=== PATIENT | female | born 1950 | race American Indian/Alaskan Native ===

== ENCOUNTER 2017-10-24 07:08 | Emergency (ER) | payer MEDICARE ==
[2017-10-24 07:35] VITALS: BP 112/76
[2017-10-24] MEDS ORDERED: MOTRIN PO ONE (07:46)
[2017-10-24] MEDS ORDERED: XOPENEX IH ONE (07:46)
[2017-10-24] MEDS ORDERED: ATROVENT IH ONE (07:46)
--- NOTE | 2017-10-24 07:48 | Emergency Department Report ---
HPI - General Chief Complaint: Upper Respiratory Infection Time Seen by Provider: 10/24/17 07:43 - HPI HPI: Patient here reports that she has flulike symptoms to include headache, cough and body aches. She said her is currently at the [facility] in ICU with similar symptoms. She reports having fever and chills. She is been taking [id number] medication without any success. She denies any shortness of breath or chest pain. Patient has history of hypertension which is controlled. Denies any nausea or vomiting. Body aches at 3/10 and achy. Nothing makes it better and nothing makes it worse. ED Past Medical Hx - Past Medical History Previous Medical History?: Yes Hx Hypertension: Yes - Surgical History Past Surgical History?: No - Family History Family history: hypertension - Social History Smoking Status: Former Smoker Substance Use Type: Alcohol - Medications Home Medications: Home Medications Medication Instructions Recorded Confirmed Last Taken Type ALBUTEROL Inhaler [ProAir HFA 2 puff IH Q4-6H PRN 30 Days #1 10/24/17 Unknown Rx Inhaler] inhalation Amoxicillin/K Clav Tab [Augmentin 1 tab PO Q12HR 10 Days #20 tab 10/24/17 Unknown Rx 875 mg] Cetirizine HCl [ZyrTEC] 10 mg PO QAM 14 Days #14 capsule 10/24/17 Unknown Rx Fluticasone [Flonase] 1 spray NS QDAY 1 Days #1 bottle 10/24/17 Unknown Rx Ibuprofen [Motrin] 600 mg PO Q8H PRN 5 Days #15 tablet 10/24/17 Unknown Rx guaiFENesin/CODEINE [Robitussin AC] 10 ml PO QHS PRN 7 Days #70 10/24/17 Unknown Rx oral.liqd ED Review of Systems ROS: Stated complaint: FLU LIKE SYMPTOMS Other details as noted in HPI Comment: All other systems reviewed and negative Constitutional: chills, fever, malaise Eyes: denies: eye pain, eye discharge ENT: congestion (runny nose ). denies: ear pain, throat pain Respiratory: cough. denies: shortness of breath, SOB with exertion, SOB at rest , stridor, wheezing Cardiovascular: denies: chest pain, palpitations, dyspnea on exertion, edema, syncope, paroxysmal nocturnal dyspnea Gastrointestinal: denies: abdominal pain, nausea, vomiting, diarrhea, constipation, hematemesis, hematochezia Genitourinary: denies: urgency, dysuria, frequency, hematuria, discharge Musculoskeletal: myalgia. denies: back pain, joint swelling, arthralgia Skin: denies: rash Neurological: headache. denies: numbness, paresthesias, confusion, abnormal gait, vertigo Physical Exam - Physical Exam Vital Signs: Vital Signs 10/24/17 07:32 Temperature 100.4 F H Pulse Rate 108 H Respiratory 20 Rate Blood Pressure 112/76 O2 Sat by Pulse 100 Oximetry Vital Signs 10/24/17 10/24/17 07:32 08:54 Temperature 100.4 F H Pulse Rate 108 H Pulse Rate [ 97 H Anterior Bilateral] Respiratory 20 Rate Respiratory 18 Rate [Anterior Bilateral] Blood Pressure 112/76 O2 Sat by Pulse 100 Oximetry General: This is a 66-year-old female well-nourished well-developed in no acute distress. Physical Exam: Head: Normocephalic, atraumatic, no abrasion, no bruising and no contusion. Eyes: Biateral pupils equal and reactive to light, bilateral EOM intact.. Bilateral conjunctival and sclera without injection, normal accommodation. s Mouth: Moist, no pharyngeal exudate or erythema. No peritonsillar abscesses. Uvula is midline and oral airways patent. Ears: TM congested without erythema. Bilateral EAC without any redness swelling or drainage. No mastoid bone tenderness Nose: Bilateral nasal turbinates congested with erythema and clear drainage. Maxillary and frontal sinuses non-tender to palpate. Neck: Supple, No Cervical adenopathy, full range of motion and no C-spine tenderness. No swelling or tracheal deviation normal reflexes Cardiovascular: S1, S2. Tachycardia at 108 , Regular rhythm. No murmur. Capillary refill is less then 3 seconds. Lungs: Scattered wheezing throughout lung rock. No rhonchi or rales No chest wall tenderness. No chest contusion. No bruising to chest. Dry cough Abdomen: Non-tender to palpate in all quadrants, no guarding or rebound tenderness, positive bowel sounds in all quadrants. No CVA tenderness. No hernia, bruit or mass. No rigidity or distention. Extremities: No clubbing, cyanosis or edema. +2 pulses. No neurovascular compromise Skin: Clean, dry and intact. No rash or lesions. Neurological: GCS at 15, Pt is alert and oriented 3 speech is clear period. 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 Normal gait. Negative Romberg and no pronator drift. Normal Reflexes. No motor or sensory deficit Psych: Normal mood and behavior ED Course Vital Signs 10/24/17 07:32 Temperature 100.4 F H Pulse Rate 108 H Respiratory 20 Rate Blood Pressure 112/76 O2 Sat by Pulse 100 Oximetry - Reevaluation(s) Reevaluation #1: 10/24/17 08:30 Patient received Xopenex 1.25 mg and Atrovent 0.5 mg, Motrin 800 mg by mouth in the emergency room. Flu swab sent and pending. Chest x-ray pending. Patient orally hydrated in the emergency room and tolerated well Reevaluation #2: 10/24/17 10:08 Chest x-ray negative for any acute findings. Influenza A and B is negative. Heart rate is normalized. Lungs sounds clear after nebulizer treatment ED Medical Decision Making - Lab Data Influenza A and B- - Radiology Data Radiology results: report reviewed Chest x-ray without any acute cardio pulmonary findings - Medical Decision Making ED course: Pt here reports flulike symptoms and said that her is admitted in the [facility] with similar symptoms. Patient with cough, wheezing. Patient found to have acute bronchitis, cough, fever in adults. Her heart rate was elevated at 109 and now it is below 100. Patient was orally hydrated in the emergency room and tolerated well without any nausea or vomiting. Chest x-ray revealed no acute cardiopulmonary findings. Influenza A and B is negative. Patient was given Motrin 800 mg emergency room for body aches which she says she feels better. Lung sounds evaluated status post Xopenex 1.25 mg and Atrovent 0.5 mg and sounds are clear. Diagnosis and treatment plan the patient and she voiced understanding. Patient does have a primary care physician I discussed that if she can call tomorrow to schedule an appointment for follow-up visit in 2-3 days. Patient discharged home with prescription for Augmentin, Flonase, Zyrtec, albuterol and guaifenesin with codeine. Critical care attestation.: If time is entered above; I have spent that time in minutes in the direct care of this critically ill patient, excluding procedure time. ED Disposition Clinical Impression: Cough with congestion of paranasal sinus, Fever and chills Acute bronchitis Qualifiers: Bronchitis organism: unspecified organism Qualified Code(s): J20.9 - Acute bronchitis, unspecified Disposition: DC-01 TO HOME OR SELFCARE Is pt being admited?: No Does the pt Need Aspirin: No Condition: Stable Instructions: Acute Bronchitis (ED), Acute Cough (ED), Fever in Adults (ED), Sinusitis (ED) Additional Instructions: Please increase her fluid intake to 2-3 L of water per day Take medication as prescribed Please follow-up with your primary care physician and call tomorrow to schedule an appointment. Rest for 72 hours Take vitamin C as this will increase your immune system Flush your nostrils out with saline to relieve congestion Please do not drive or operate heavy machinery while taking guaifenesin with codeine cough medicine as this medication causes drowsiness Prescriptions: guaiFENesin/CODEINE [Robitussin AC] 10 ml PO QHS PRN 7 Days #70 oral.liqd PRN Reason: Cough ALBUTEROL Inhaler [ProAir HFA Inhaler] 2 puff IH Q4-6H PRN 30 Days #1 inhalation PRN Reason: Wheezing Amoxicillin/K Clav Tab [Augmentin 875 mg] 1 tab PO Q12HR 10 Days #20 tab Cetirizine HCl [ZyrTEC] 10 mg PO QAM 14 Days #14 capsule Fluticasone [Flonase] 1 spray NS QDAY 1 Days #1 bottle Ibuprofen [Motrin] 600 mg PO Q8H PRN 5 Days #15 tablet PRN Reason: Pain Referrals: PRIMARY CARE, [Primary Care Provider] - 2-3 Days Forms: Work/School Release Form(ED)
--- NOTE | 2017-10-24 09:41 | XRay Report ---
Single view chest: History: Cough and fever. Findings: Normal cardiomediastinal silhouette. Trachea is midline. No consolidation, pneumothorax or pleural effusion. Impression: No acute cardiopulmonary findings.
== END 2017-10-24 10:22 | disposition home or self-care (01) ==
LOC: ED 07:08
DX: J20.9 Acute bronchitis, unspecified (principal); R05 Cough; R50.9 Fever, unspecified; I10 Essential (primary) hypertension; Z87.891 Personal history of nicotine dependence
CPT/HCPCS: 71046; 87400; 94640

== ENCOUNTER 2018-07-12 09:38 | Emergency (ER) | payer MEDICARE ==
[2018-07-12 10:38] LABS: Basophils % (Auto) 0.9 % (0.0-1.8); Eosinophils # (Auto) 0.3 K/mm3 (0.0-0.4); Eosinophils % (Auto) 6.9 % (0.0-4.3); Hematocrit 42.3 % (30.3-42.9); Hemoglobin 14.2 gm/dl (10.1-14.3); Lymphocytes # (Auto) 1.9 K/mm3 (1.2-5.4); Lymphocytes % (Auto) 44.1 % (13.4-35.0); Mean Corpuscular HGB Conc 34 % (30-34); Mean Corpuscular Hemoglobin 34 pg (28-32); Mean Corpuscular Volume 102 fl (79-97); Monocytes # (Auto) 0.3 K/mm3 (0.0-0.8); Monocytes % (Auto) 7.8 % (0.0-7.3); Platelet Count 166 K/mm3 (140-440); Red Blood Count 4.15 M/mm3 (3.65-5.03); Red Cell Distribution Width 12.9 % (13.2-15.2)
[2018-07-12 10:51] LABS: BUN/Creatinine Ratio 22; Blood Urea Nitrogen 11 mg/dL (7-17); Calcium 9.4 mg/dL (8.4-10.2); Hemolysis Index 8
[2018-07-12] MEDS ORDERED: K-DUR PO ONE (11:41)
--- NOTE | 2018-07-12 11:50 | Emergency Department Report ---
ED Palpitations HPI - General Chief Complaint: Arrhythmia/Palpitations Stated Complaint: HEART RACING Time Seen by Provider: 07/12/18 11:32 Source: patient, old records reviewed (no previous cardiac workup) Mode of arrival: Ambulatory Limitations: No Limitations - History of Present Illness Initial Comments: 67 year old female with a past medical history of hypertension for this hospital with complaints of intermittent palpitations since yesterday. Symptoms occur at rest but also exacerbated by exertion. Palpitation episodes last for several minutes prior to resolving. Positive associated lightheadedness but denies nausea, vomiting, chest pain, shortness of breath, syncope, or diaphoresis. Patient has been compliant with her BP medication list includes a diuretic and propanolol 10 mg. She also take potassium. She did not take her medication today because she was in the hospital. She had an echocardiogram in her primary care doctor's office 2-3 months ago and was told that she has "regurgitation". She states that he has she has been told she has mitral valve prolapse but told by another physician does not. Last stress test was over 30 years ago. Patient denies recent travel, calf tenderness, edema, history of DVT or PE. PCP Dr Rodriguez - Related Data Home Medications Medication Instructions Recorded Confirmed Last Taken Potassium Chloride [K-Dur] 20 meq PO BID 07/12/18 07/12/18 Unknown Propranolol [Inderal] 30 mg PO DAILY 07/12/18 07/12/18 Unknown Triamterene/Hydrochlorothiazid 1 each PO DAILY 07/12/18 07/12/18 Unknown [Triamterene-Hctz 37.5-25 mg Cp] Allergies Allergy/AdvReac Type Severity Reaction Status Date / Time aspirin AdvReac Unknown Verified 10/24/17 07:53 ED Review of Systems ROS: Stated complaint: HEART RACING Other details as noted in HPI Comment: All other systems reviewed and negative ED Past Medical Hx - Past Medical History Hx Hypertension: Yes - Surgical History Past Surgical History?: No - Social History Smoking Status: Never Smoker Substance Use Type: None - Medications Home Medications: Home Medications Medication Instructions Recorded Confirmed Last Taken Type Potassium Chloride [K-Dur] 20 meq PO BID 07/12/18 07/12/18 Unknown History Propranolol [Inderal] 30 mg PO DAILY 07/12/18 07/12/18 Unknown History Triamterene/Hydrochlorothiazid 1 each PO DAILY 07/12/18 07/12/18 Unknown History [Triamterene-Hctz 37.5-25 mg Cp] ED Physical Exam - General Limitations: No Limitations - Other Other exam information: General: No limitations, patient is alert in no acute distress Head exam: Atraumatic, normocephalic Eyes exam: Normal appearance ENT: Moist mucous membrane, normal oropharynx Neck exam: Normal inspection, full range of motion, no meningismus nontender Respiratory exam: Clear to auscultation bilateral, no wheezes, rales, crackles Cardiovascular: Normal rate and rhythm, no significant murmur auscultated Abdomen: Soft, nondistended, and nontender, with normal bowel sounds, no rebound, or guarding Extremity: Full range of motion normal inspection no deformity, no calf tenderness or edema Back: Normal Inspection, full range of motion, no tenderness Neurologic: Alert, oriented x3, cranial nerves intact, no motor or sensory deficit Psychiatric: normal affect, normal mood Skin: Warm, dry, intact ED Course Vital Signs 07/12/18 07/12/18 07/12/18 09:52 11:30 11:46 Temperature 98.4 F Pulse Rate 80 74 Respiratory 18 12 Rate Blood Pressure 121/80 137/85 O2 Sat by Pulse 100 98 99 Oximetry 07/12/18 07/12/18 07/12/18 12:00 12:16 12:30 Temperature Pulse Rate 87 92 H 87 Respiratory 11 L 12 15 Rate Blood Pressure 135/79 123/81 123/81 O2 Sat by Pulse 99 99 Oximetry 07/12/18 07/12/18 07/12/18 13:00 13:30 14:00 Temperature Pulse Rate 86 80 77 Respiratory 11 L 12 11 L Rate Blood Pressure 116/78 116/78 126/74 O2 Sat by Pulse 99 98 98 Oximetry 07/12/18 14:30 Temperature Pulse Rate 77 Respiratory 11 L Rate Blood Pressure 126/74 O2 Sat by Pulse 98 Oximetry - Consultations Consultation #1: 07/12/[address] Schreiber during patient's stay. Their group reads echo' s for Dr Rodriguez. Recommended to stop Maxide BP medication and to follow-up in the office. He provided patient's contact information to his office so they may result tomorrow. Patient will also be provided information for the office so she may call 09/25/18 14:55 ED Medical Decision Making - Lab Data Result diagrams: 07/12/18 10:17 07/12/18 10:17 Lab Results 07/12/18 07/12/18 07/12/18 Range/Units 10:17 10:17 10:17 WBC 4.3 L (4.5-11.0) K/mm3 RBC 4.15 (3.65-5.03) M/mm3 Hgb 14.2 (10.1-14.3) gm/dl Hct 42.3 (30.3-42.9) % MCV 102 H (79-97) fl MCH 34 H (28-32) pg MCHC 34 (30-34) % RDW 12.9 L (13.2-15.2) % Plt Count 166 (140-440) K/mm3 Lymph % (Auto) 44.1 H (13.4-35.0) % Dewey % (Auto) 7.8 H (0.0-7.3) % Eos % (Auto) 6.9 H (0.0-4.3) % Baso % (Auto) 0.9 (0.0-1.8) % Lymph # 1.9 (1.2-5.4) K/mm3 Dewey # 0.3 (0.0-0.8) K/mm3 Eos # 0.3 (0.0-0.4) K/mm3 Baso # 0.0 (0.0-0.1) K/mm3 Seg Neutrophils % 40.3 (40.0-70.0) % Seg Neutrophils # 1.7 L (1.8-7.7) K/mm3 PT (12.2-14.9) Sec. INR (0.87-1.13) Sodium 137 (137-145) mmol/L Potassium 3.2 L (3.6-5.0) mmol/L Chloride 95.5 L (98-107) mmol/L Carbon Dioxide 28 (22-30) mmol/L Anion Gap 17 mmol/L BUN 11 (7-17) mg/dL Creatinine 0.5 L (0.7-1.2) mg/dL Estimated GFR > 60 ml/min BUN/Creatinine Ratio 22 % Glucose 119 H (65-100) mg/dL Calcium 9.4 (8.4-10.2) mg/dL Magnesium 1.80 (1.7-2.3) mg/dL Troponin T < 0.010 (0.00-0.029) ng/mL TSH (0.270-4.200) mlU/mL Free T4 (0.76-1.46) ng/dL 07/12/18 07/12/18 07/12/18 Range/Units 11:51 11:51 13:23 WBC (4.5-11.0) K/mm3 RBC (3.65-5.03) M/mm3 Hgb (10.1-14.3) gm/dl Hct (30.3-42.9) % MCV (79-97) fl MCH (28-32) pg MCHC (30-34) % RDW (13.2-15.2) % Plt Count (140-440) K/mm3 Lymph % (Auto) (13.4-35.0) % Dewey % (Auto) (0.0-7.3) % Eos % (Auto) (0.0-4.3) % Baso % (Auto) (0.0-1.8) % Lymph # (1.2-5.4) K/mm3 Dewey # (0.0-0.8) K/mm3 Eos # (0.0-0.4) K/mm3 Baso # (0.0-0.1) K/mm3 Seg Neutrophils % (40.0-70.0) % Seg Neutrophils # (1.8-7.7) K/mm3 PT 12.4 (12.2-14.9) Sec. INR 0.88 (0.87-1.13) Sodium (137-145) mmol/L Potassium (3.6-5.0) mmol/L Chloride (98-107) mmol/L Carbon Dioxide (22-30) mmol/L Anion Gap mmol/L BUN (7-17) mg/dL Creatinine (0.7-1.2) mg/dL Estimated GFR ml/min BUN/Creatinine Ratio % Glucose (65-100) mg/dL Calcium (8.4-10.2) mg/dL Magnesium (1.7-2.3) mg/dL Troponin T < 0.010 (0.00-0.029) ng/mL TSH 4.000 (0.270-4.200) mlU/mL Free T4 0.88 (0.76-1.46) ng/dL - EKG Data -: EKG Interpreted by Me EKG shows normal: sinus rhythm (qrs 10), axis (qrs 10), QRS complexes (qrsd 82) , ST-T waves (no stemi/t inv) Rate: normal (86) - EKG Data When compared to previous EKG there are: previous EKG unavailable - Medical Decision Making Observed in the ER for several hours without any episodes of tachycardia, arrhythmia, or palpitations Patient received 1 L normal saline for mild increase in heart rate greater than 20 points with standing Case discussed a hotel front desk agent Maxide (and kcl) will be discontinued and patient stretches to continue propanolol and to follow-up with hotel front desk agent as discussed Patient given mouth potassium for mild hypokalemia - Differential Diagnosis arrhythmia, SVT, palpitations, thyroid disease, anemia, dehydration Critical Care Time: No Critical care attestation.: If time is entered above; I have spent that time in minutes in the direct care of this critically ill patient, excluding procedure time. ED Disposition Clinical Impression: Heart palpitations, Hypokalemia Disposition: DC- TO HOME OR SELFCARE Is pt being admited?: No Does the pt Need Aspirin: No Condition: Stable Instructions: Palpitations (ED), Hypokalemia (ED) Additional Instructions: Stop your triamterene/hctz. Take one more dose of potassium tomorrow. Continue your Propanolol. Follow up with the hotel front desk agent (call tomorrow). Return if symptoms worsen as indicated by your discharge instructions Referrals: PRIMARY CARE, [Primary Care Provider] - 3-5 Days JESUS SCHREIBER MD [Staff Physician] - 3-5 Days Time of Disposition: 14:55
[2018-07-12 12:16] LABS: INR 0.88 (0.87-1.13)
[2018-07-12] MEDS ORDERED: NACL 0.9% 1000 ML 1,000 ML ONE (12:21)
[2018-07-12] MEDS ORDERED: NACL 0.9% 1000 ML 1,000 ML IV ONE (12:26)
[2018-07-12 12:41] LABS: Free T4 (Free Thyroxine) 0.88 ng/dL (0.76-1.46)
[2018-07-12 15:11] VITALS: BP 128/74
== END 2018-07-12 15:11 | disposition home or self-care (01) ==
LOC: ED 09:38
DX: R00.2 Palpitations (principal); E87.6 Hypokalemia; I10 Essential (primary) hypertension; Z79.82 Long term (current) use of aspirin; Z86.718 Personal history of other venous thrombosis and embolism
CPT/HCPCS: 36415; 80048; 83735; 84439; 84443; 84484; 85025; 85610; 93005; 93010; 99284; J7030

== ENCOUNTER 2020-08-01 15:01 | Outpatient (CLI) | payer MEDICARE ==
[2020-08-01 15:47] LABS: Albumin 4.1 g/dL (3.9-5); Blood Urea Nitrogen 10 mg/dL (7-17); Calcium 9.3 mg/dL (8.4-10.2); Hemolysis Index 13
[2020-08-01 15:56] LABS: BUN/Creatinine Ratio 14
== END 2020-08-01 15:02 | disposition home or self-care (01) ==
LOC: LAB 15:01
PROVIDERS: ATTEND Internal Medicine Nephrology
DX: E87.6 Hypokalemia (principal); R94.4 Abnormal results of kidney function studies; D64.9 Anemia, unspecified; E87.8 Other disorders of electrolyte and fluid balance, not elsewhere classified; E87.1 Hypo-osmolality and hyponatremia
CPT/HCPCS: 36415; 80048; 82040; 84100

== ENCOUNTER 2020-08-14 09:46 | Observation (INO) | payer MEDICARE ==
--- NOTE | 2020-08-14 11:34 | Emergency Department Report ---
ED General Adult HPI - General Chief complaint: Neuro Symptoms/Deficit Stated complaint: HANDS NUMB/FEET NUMB Time Seen by Provider: 08/14/20 11:15 Source: patient Mode of arrival: Ambulatory Limitations: No Limitations - History of Present Illness Initial comments: 69-year-old male with a past medical history hypertension, hypokalemia of unknown cause for the last 15 years, and elevated cholesterol presents to the hospital complaints of numbness to fingertips and tips of toes for the last 10 days. Symptoms are constant without aggravating or alleviating factors. Patient feels like numbness is spreading inward. No weakness reported. Patient was recently referred to environmental technology professor Dr. Mcdaniel and as per medical record review. Had outpatient labs performed August 01 showing potassium 3.3 and phosphorus of 1.5. Calcium was normal. Magnesium was not performed. Patient then had her once a day dose of potassium 1.7 mL was increased to twice a day and folic acid was added to her medications on August 06. In addition to that patient is also taking propanolol 30 mg every morning, rosuvastatin 5 mg daily, liquid potassium 1.7 mL twice daily, and folic acid. Patient denies previous diagnosis of neuropathy. PMD: Dr. Cade Severity scale (0 -10): 6 - Related Data Home Medications Medication Instructions Recorded Confirmed Last Taken Potassium Chloride [K-Dur] 20 meq PO BID 07/12/18 07/12/18 Unknown Triamterene/Hydrochlorothiazid 1 each PO DAILY 07/12/18 07/12/18 Unknown [Triamterene-Hctz 37.5-25 mg Cp] propranoloL [Inderal] 30 mg PO DAILY 07/12/18 07/12/18 Unknown Allergies Allergy/AdvReac Type Severity Reaction Status Date / Time aspirin AdvReac Unknown Verified 08/14/20 10:03 ED Review of Systems ROS: Stated complaint: HANDS NUMB/FEET NUMB Other details as noted in HPI Comment: All other systems reviewed and negative ED Past Medical Hx - Past Medical History Hx Hypertension: Yes Additional medical history: Chronic hypokalemia, elevated cholesterol - Social History Smoking Status: Never Smoker Substance Use Type: None - Medications Home Medications: Home Medications Medication Instructions Recorded Confirmed Last Taken Type Potassium Chloride [K-Dur] 20 meq PO BID 07/12/18 07/12/18 Unknown History Triamterene/Hydrochlorothiazid 1 each PO DAILY 07/12/18 07/12/18 Unknown History [Triamterene-Hctz 37.5-25 mg Cp] propranoloL [Inderal] 30 mg PO DAILY 07/12/18 07/12/18 Unknown History ED Physical Exam - General Limitations: No Limitations - Other Other exam information: General: No acute distress Head: Atraumatic Eyes: normal appearance ENT: Moist mucous membranes Neck: Normal appearance, no midline tenderness Chest: Clear to auscultation bilaterally CV: Regular rate and rhythm Abdomen: Soft, normal bowel sounds, nontender, nondistended, no rebound or guarding Back: Normal inspection Extremity: Normal inspection, full range of motion Neuro: Alert O x 3, no facial asymmetry, speech clear, 5/5 upper lower extremity strength equal handgrip and movement of feet and toes. Decreased sensation to light touch to the tips of her finger and tips of her toes with intact sensation through mid and proximal portion of fingers/toes and full sensation to touch more proximally. Cap refill in fingers and toes less than 2 seconds. 2+ radial and DP pulses appreciated Psych: Appropriate behavior Skin: No rash ED Course Vital Signs 08/14/20 10:07 Temperature 98.1 F Pulse Rate 87 Respiratory 18 Rate Blood Pressure 98/66 [Right] O2 Sat by Pulse 100 Oximetry - Consultations Consultation #1: 08/14/20 14:58 Case discussed with Gisela who consulted Dr. Bernard who recommend admission to the hospital for further work-up hypokalemia with associated paresthesia ED Medical Decision Making - Lab Data Result diagrams: 08/14/20 11:53 08/14/20 11:53 Lab Results 08/14/20 08/14/20 08/14/20 Range/Units 11:53 11:53 12:44 WBC 4.1 L (4.5-11.0) K/mm3 RBC 2.26 L (3.65-5.03) M/mm3 Hgb 9.2 L (10.1-14.3) gm/dl Hct 27.2 L (30.3-42.9) % MCV 120 H (79-97) fl MCH 41 H (28-32) pg MCHC 34 (30-34) % RDW 15.3 H (13.2-15.2) % Plt Count 123 L (140-440) K/mm3 Lymph % (Auto) 28.3 (13.4-35.0) % [place]ke % (Auto) 10.0 H (0.0-7.3) % Eos % (Auto) 0.8 (0.0-4.3) % Baso % (Auto) 0.6 (0.0-1.8) % Lymph # (Auto) 1.2 (1.2-5.4) K/mm3 [place]ke # (Auto) 0.4 (0.0-0.8) K/mm3 Eos # (Auto) 0.0 (0.0-0.4) K/mm3 Baso # (Auto) 0.0 (0.0-0.1) K/mm3 Seg Neutrophils % 60.3 (40.0-70.0) % Seg Neutrophils # 2.5 (1.8-7.7) K/mm3 Sodium 135 L (137-145) mmol/L Potassium 3.1 L (3.6-5.0) mmol/L Chloride 93.9 L (98-107) mmol/L Carbon Dioxide 31 H (22-30) mmol/L Anion Gap 13 mmol/L BUN 4 L (7-17) mg/dL Creatinine 0.6 (0.6-1.2) mg/dL Estimated GFR > 60 ml/min BUN/Creatinine Ratio 7 % Glucose 137 H (65-100) mg/dL Calcium 9.1 (8.4-10.2) mg/dL Phosphorus 2.50 (2.5-4.5) mg/dL Magnesium 1.90 (1.7-2.3) mg/dL Albumin 3.7 L (3.9-5) g/dL Urine Color Straw (Yellow) Urine Turbidity Clear (Clear) Urine pH 9.0 H (5.0-7.0) Ur Specific [place] 1.003 (1.003-1.030) Urine Protein 30 mg/dl (Negative) mg/dL Urine Glucose (UA) Neg (Negative) mg/dL Urine Ketones Neg (Negative) mg/dL Urine Blood Mod (Negative) Urine Nitrite Neg (Negative) Urine Bilirubin Neg (Negative) Urine Urobilinogen < 2.0 (<2.0) mg/dL Ur Leukocyte Esterase Lg (Negative) Urine WBC (Auto) 3.0 (0.0-6.0) /HPF Urine RBC (Auto) 1.0 (0.0-6.0) /HPF U Epithel Cells (Auto) 2.0 (0-13.0) /HPF Urine Bacteria (Auto) 1+ (Negative) /HPF Urine Mucus Few /HPF Urine Creatinine (0.1-20.0) mg/dL Urine Sodium mmol/L Urine Potassium mmol/L 08/14/20 08/14/20 Range/Units 12:44 Unknown WBC (4.5-11.0) K/mm3 RBC (3.65-5.03) M/mm3 Hgb (10.1-14.3) gm/dl Hct (30.3-42.9) % MCV (79-97) fl MCH (28-32) pg MCHC (30-34) % RDW (13.2-15.2) % Plt Count (140-440) K/mm3 Lymph % (Auto) (13.4-35.0) % Parke % (Auto) (0.0-7.3) % Eos % (Auto) (0.0-4.3) % Baso % (Auto) (0.0-1.8) % Lymph # (Auto) (1.2-5.4) K/mm3 Parke # (Auto) (0.0-0.8) K/mm3 Eos # (Auto) (0.0-0.4) K/mm3 Baso # (Auto) (0.0-0.1) K/mm3 Seg Neutrophils % (40.0-70.0) % Seg Neutrophils # (1.8-7.7) K/mm3 Sodium (137-145) mmol/L Potassium (3.6-5.0) mmol/L Chloride (98-107) mmol/L Carbon Dioxide (22-30) mmol/L Anion Gap mmol/L BUN (7-17) mg/dL Creatinine (0.6-1.2) mg/dL Estimated GFR ml/min BUN/Creatinine Ratio % Glucose (65-100) mg/dL Calcium (8.4-10.2) mg/dL Phosphorus (2.5-4.5) mg/dL Magnesium (1.7-2.3) mg/dL Albumin (3.9-5) g/dL Urine Color (Yellow) Urine Turbidity (Clear) Urine pH (5.0-7.0) Ur Specific [place] (1.003-1.030) Urine Protein (Negative) mg/dL Urine Glucose (UA) (Negative) mg/dL Urine Ketones (Negative) mg/dL Urine Blood (Negative) Urine Nitrite (Negative) Urine Bilirubin (Negative) Urine Urobilinogen (<2.0) mg/dL Ur Leukocyte Esterase (Negative) Urine WBC (Auto) (0.0-6.0) /HPF Urine RBC (Auto) (0.0-6.0) /HPF U Epithel Cells (Auto) (0-13.0) /HPF Urine Bacteria (Auto) (Negative) /HPF Urine Mucus /HPF Urine Creatinine 25.8 H (0.1-20.0) mg/dL Urine Sodium 14 mmol/L Urine Potassium 23.48 mmol/L - Medical Decision Making Patient presents to the hospital with paresthesias and found to have worsening potassium despite doubling initial outpatient potassium dose for the last 8 days. P.o. potassium 40 mEq provided in the ED. Case discussed with nephrology NIGHAT Higgins who consulted Dr. Bernard. Admission is recommended for further investigation and potassium supplementation. Case discussed with hospitalist Dr. Gonzalez for admission Critical Care Time: No Critical care attestation.: If time is entered above; I have spent that time in minutes in the direct care of this critically ill patient, excluding procedure time. ED Disposition Clinical Impression: Hypokalemia, Failure of outpatient treatment, Paresthesia Disposition: OP ADMIT IP TO THIS HOSP Is pt being admited?: Yes Condition: Stable Time of Disposition: 15:01 (Dr Gonzalez/hosp)
[2020-08-14 12:37] LABS: Basophils % (Auto) 0.6 % (0.0-1.8); Eosinophils % (Auto) 0.8 % (0.0-4.3); Hematocrit 27.2 % (30.3-42.9); Hemoglobin 9.2 gm/dl (10.1-14.3); Lymphocytes # (Auto) 1.2 K/mm3 (1.2-5.4); Lymphocytes % (Auto) 28.3 % (13.4-35.0); Mean Corpuscular HGB Conc 34 % (30-34); Mean Corpuscular Volume 120 fl (79-97); Monocytes # (Auto) 0.4 K/mm3 (0.0-0.8); Platelet Count 123 K/mm3 (140-440); Red Blood Count 2.26 M/mm3 (3.65-5.03); Red Cell Distribution Width 15.3 % (13.2-15.2)
[2020-08-14 13:03] LABS: Albumin 3.7 g/dL (3.9-5); BUN/Creatinine Ratio 7; Blood Urea Nitrogen 4 mg/dL (7-17); Calcium 9.1 mg/dL (8.4-10.2); Hemolysis Index 3
[2020-08-14] MEDS ORDERED: POTASSIUM CHLORIDE ER 20 MEQ TAB PO ONE (13:07)
[2020-08-14 13:13] LABS: Bacteria,Urine 1+ /HPF (Negative); Bilirubin,Urine NEG (Negative); Blood,Urine MOD (Negative); Color,Urine Straw (Yellow); Mucus,Urine FEW /HPF; Urobilinogen,Urine < 2.0 mg/dL (<2.0)
[2020-08-14 13:14] LABS: Creatinine,Urine 25.8 mg/dL (0.1-20.0)
--- NOTE | 2020-08-14 14:40 | Event Note ---
Patient will need correction of hypokalemia and will also need admission she is alkalotic Case discussed with attending physician patient is being admitted here with hypokalemia, metabolic acidosis in the outpatient setting she was taking triamterene hydrochlorothiazide which should be avoided altogether Patient's potassium needs to be corrected, will check for any significant urinary loss of potassium, replace potassium orally for now follow-up she may need IV hydration We will check aldosterone and plasma renin level tomorrow
[2020-08-14] MEDS ORDERED: SODIUM CHLORIDE 0.9% 1000 ML 1,000 ML IV ONE (15:17)
--- NOTE | 2020-08-14 15:17 | History and Physical Report ---
History of Present Illness Chief complaint: My hands and feet feel cold and numb History of present illness: 69 YO Female with HTN, Chronic Hypokalemia, HLD presents to ED for evaluation. Patient states that she has experienced numbness and "cold feeling" to her fingertips as well as her feet over the past 10 days with persistent symptoms over the same timeframe. Patient denies the use of laxatives and/or diuretic therapy. Patient transported to [facility] via private vehicle for further care and evaluation of the aforementioned symptoms. Patient seen and evaluated in the emergency department. All lab and imaging studies reviewed. Patient was found to have hypokalemia, metabolic alkalosis, as well as bilateral upper and lower extremity paresthesias. Patient placed in observation status and admitted to medical floor. Nephrology team consulted in ED. Patient denies fever, chills, chest pain, palpitations, productive cough, skin rash, recent ill contacts, or known exposure to COVID-19. No prior admission for review. All medication listed at time of admission has been reconciled. Advanced care planning conducted in the emergency department. Past History Past Medical History: hypertension, hyperlipidemia, other (See HPI) Past Surgical History: No surgical history, Other (Reviewed) Social history: Family history: hypertension Medications and Allergies Allergies Allergy/AdvReac Type Severity Reaction Status Date / Time aspirin AdvReac Unknown Verified 08/14/20 10:03 Home Medications Medication Instructions Recorded Confirmed Last Taken Type Potassium Chloride [K-Dur] 20 meq PO BID 07/12/18 07/12/18 Unknown History Triamterene/Hydrochlorothiazid 1 each PO DAILY 07/12/18 07/12/18 Unknown History [Triamterene-Hctz 37.5-25 mg Cp] propranoloL [Inderal] 30 mg PO DAILY 07/12/18 07/12/18 Unknown History Active Meds: Active Medications Acetaminophen (Tylenol) 650 mg PO Q4H PRN PRN Reason: Pain MILD(1-3)/Fever >100.5/HEREDIA Albuterol (Proventil) 2.5 mg IH Q4HRT PRN PRN Reason: Shortness Of Breath Ondansetron HCl (Zofran) 4 mg IV Q8H PRN PRN Reason: Nausea And Vomiting Potassium Chloride (K-Dur) 20 meq PO BID [facility] Propranolol HCl (Inderal) 30 mg PO DAILY [facility] Sodium Chloride (Sodium Chloride Flush Syringe 10 Ml) 10 ml IV BID [facility] Sodium Chloride (Sodium Chloride Flush Syringe 10 Ml) 10 ml IV PRN PRN PRN Reason: LINE FLUSH Review of Systems Constitutional: weakness, no weight loss, no weight gain, no fever, no chills Ears, nose, mouth and throat: no ear pain, no ear discharge, no tinnitis, no decreased hearing, no nose pain, no nasal congestion Breasts: no change in shape, no swelling, no mass Cardiovascular: no chest pain, no palpitations, no rapid/irregular heart beat, no edema Respiratory: no cough, no cough with sputum, no hemoptysis, no shortness of breath Gastrointestinal: no diarrhea, no constipation, no change in bowel habits Genitourinary Female: no pelvic pain, no flank pain, no urinary frequency, no urgency Rectal: no pain, no incontinence, no bleeding Musculoskeletal: no neck stiffness, no neck pain, no arm numbness/tingling, no low back pain Integumentary: no rash, no pruritis, no sores, no jaundice Neurological: parathesias, numbness, no paralysis, no tingling, no seizures, no syncope, no tremors, no convulsions, no aphasia, no change in mentation Psychiatric: no anxiety, no memory loss, no hypersomnia, no change in libido Endocrine: no cold intolerance, no heat intolerance, no excessive thirst, no polydipsia, no nocturia, no excessive sweating Hematologic/Lymphatic: no easy bruising, no lymphadenopathy, no lymphedema Allergic/Immunologic: no anaphylaxis, no angioedema Exam - Constitutional Vitals: Temp Pulse Resp BP Pulse Ox 98.1 F 87 18 98/66 100 08/14/20 10:07 08/14/20 10:07 08/14/20 10:07 08/14/20 10:07 08/14/20 10:07 General appearance: Present: mild distress, cachectic - EENT Eyes: Present: PERRL ENT: hearing intact, clear oral mucosa - Neck Neck: Present: supple, normal ROM - Respiratory Respiratory effort: normal Respiratory: bilateral: CTA - Cardiovascular Heart Sounds: Present: S1 & S2. Absent: rub, click - Extremities Extremities: pulses symmetrical, No edema Peripheral Pulses: within normal limits - Abdominal General gastrointestinal: Present: soft, non-tender, non-distended, normal bowel sounds Female genitourinary: Present: normal - Integumentary Integumentary: Present: clear, warm, dry - Musculoskeletal Musculoskeletal: gait normal, strength equal bilaterally - Psychiatric Psychiatric: appropriate mood/affect, intact judgment & insight - Neurologic Neurologic: CNII-XII intact, moves all extremities Results - Labs CBC & Chem 7: 08/14/20 11:53 08/14/20 11:53 Labs: Abnormal lab results 08/14/20 08/14/20 08/14/20 Range/Units 11:53 11:53 12:44 WBC 4.1 L (4.5-11.0) K/mm3 RBC 2.26 L (3.65-5.03) M/mm3 Hgb 9.2 L (10.1-14.3) gm/dl Hct 27.2 L (30.3-42.9) % MCV 120 H (79-97) fl MCH 41 H (28-32) pg RDW 15.3 H (13.2-15.2) % Plt Count 123 L (140-440) K/mm3 [place] % (Auto) 10.0 H (0.0-7.3) % Sodium 135 L (137-145) mmol/L Potassium 3.1 L (3.6-5.0) mmol/L Chloride 93.9 L (98-107) mmol/L Carbon Dioxide 31 H (22-30) mmol/L BUN 4 L (7-17) mg/dL Glucose 137 H (65-100) mg/dL Albumin 3.7 L (3.9-5) g/dL Urine pH 9.0 H (5.0-7.0) Urine Creatinine (0.1-20.0) mg/dL 08/14/20 Range/Units 12:44 WBC (4.5-11.0) K/mm3 RBC (3.65-5.03) M/mm3 Hgb (10.1-14.3) gm/dl Hct (30.3-42.9) % MCV (79-97) fl MCH (28-32) pg RDW (13.2-15.2) % Plt Count (140-440) K/mm3 [place] % (Auto) (0.0-7.3) % Sodium (137-145) mmol/L Potassium (3.6-5.0) mmol/L Chloride (98-107) mmol/L Carbon Dioxide (22-30) mmol/L BUN (7-17) mg/dL Glucose (65-100) mg/dL Albumin (3.9-5) g/dL Urine pH (5.0-7.0) Urine Creatinine 25.8 H (0.1-20.0) mg/dL Assessment and Plan - Patient Problems (1) Metabolic alkalosis Current Visit: Yes Status: Acute Plan to address problem: IV fluid resuscitation therapy, urine electrolytes, supportive care. (2) Hypokalemia Current Visit: Yes Status: Acute Plan to address problem: Potassium repleted in ED, supportive care, magnesium level. Nephrology team consulted. (3) Paresthesia Current Visit: Yes Status: Acute Plan to address problem: Supportive care, thyroid panel, urine electrolytes, supportive care. (4) DVT prophylaxis Current Visit: Yes Status: Acute Plan to address problem: SCD to bilateral lower extremities while in bed, patient is ambulatory (5) Advance care planning Current Visit: Yes Status: Acute Plan to address problem: Disease education conducted, patient is full code, patient prognosis discussed, patient care plan discussed, patient knowledges understanding and agreement with care plan, +30 minutes.
[2020-08-14] MEDS ORDERED: ONDANSETRON 4 MG/2 ML INJ IV PRN (15:30)
[2020-08-14] MEDS ORDERED: SODIUM CHLORIDE 0.9% 1000 ML 1,000 ML IV SCH (15:30)
[2020-08-14] MEDS ORDERED: ACETAMINOPHEN 325 MG TAB PO PRN (15:30)
[2020-08-14] MEDS ORDERED: ALBUTEROL 2.5 MG/3 ML NEBU IH PRN (15:30)
[2020-08-14] MEDS ORDERED: SODIUM CHLORIDE 0.9% 1000 ML 1,000 ML ONE (16:08)
[2020-08-14 20:33] LABS: Free T4 (Free Thyroxine) 1.05 ng/dL (0.76-1.46)
[2020-08-14] MEDS: POTASSIUM CHLORIDE ER 20 MEQ TAB PO SCH (22:00)
--- NOTE | 2020-08-15 08:17 | Consultation ---
History of Present Illness - History of Present Illness Thank you for the consultation Patient was evaluated today My assessment and plan are as follows Symptomatic hypokalemia likely due to diuretics patient has already stopped taking triamterene hydrochlorothiazide her blood pressure appears to be stable Hypokalemia needs to be replaced and followed if stable she can be discharged History of hypertension if needed we can start her on Aldactone in the outpatient setting She has no history of any nausea vomiting diarrhea denies having used any form of laxative, she was taking triamterene hydrochlorothiazide in the outpatient s etting Also noted to be volume depleted currently doing much better discussed with hospital medicine service if patient is doing well throughout the afternoon and blood pressure is better she can be discharged to follow-up in the office would not send her home on triamterene hydrochlorothiazide and in fact can be tried on Aldactone therapy if blood pressure is elevated she is not allergic to angiotensin receptor peyman or KAYKAY inhibitor We will continue to follow and make recommendation for renal standpoint upon discharge she will need to follow-up in the office next week Encouraged her to stay with high potassium diet and restrict her dietary intake of sodium lifestyle changes were also discussed with patient Author: Keyur Bernard M.D. [facility], [address] [place] [address] Tel; [phone] Source of information: From patient number as well as clinic records and hospital records History of present illness 69-year-old female who has been admitted here with hypokalemia with some degree of volume depletion, patient was symptomatic with hyperkalemia with some tingling and numbness in hands she is currently being followed in our clinic and was also noted to have a potassium of 3.1 patient was given IV fluid as well as oral potassium and she is feeling much better her blood pressure is stable for now She has no history of any nausea vomiting diarrhea denies using any form of laxative she has already stopped taking triamterene hydrochlorothiazide for the past few days Past medical history: hypertension Hypokalemia Current allergies: Reviewed from the current chart Social history: Reviewed from the current chart Family history: Reviewed from the current chart Review of system: Positive for weakness tingling numbness All other review of systems negative Physical examination Vitals: Reviewed General: No acute distress HEENT: Oral mucosa appears to be mildly dry no pallor or icterus Neck: Supple without any JVD thyromegaly or nodular mass Chest: Clear to auscultation Heart: Regular rate and rhythm S1-S2 heard no S3-S4 Abdomen: Soft nontender, bowel sounds present no renal bruit no suprapubic masses no CVA tenderness noted Extremity: Minimal edema dry skin no peripheral cyanosis Endocrine: Thyroid not enlarged Psychiatric: No agitation and aggression noted Musculoskeletal: No joint effusion noted Labs and x-rays: Reviewed from this admission Past History Past Medical History: hypertension, hyperlipidemia, other (See HPI) Past Surgical History: No surgical history, Other (Reviewed) Social history: Family history: hypertension Medications and Allergies Allergies Allergy/AdvReac Type Severity Reaction Status Date / Time aspirin AdvReac Unknown Verified 08/14/20 10:03 Home Medications Medication Instructions Recorded Confirmed Last Taken Type propranoloL [Inderal] 30 mg PO DAILY 07/12/18 07/12/18 Unknown History Potassium Chloride [K-Dur] 20 meq PO BID #30 08/15/20 Unknown Rx Active Meds: Active Medications Acetaminophen (Tylenol) 650 mg PO Q4H PRN PRN Reason: Pain MILD(1-3)/Fever >100.5/HEREDIA Last Admin: 08/14/20 23:55 Dose: 650 mg Documented by: Albuterol (Proventil) 2.5 mg IH Q4HRT PRN PRN Reason: Shortness Of Breath Sodium Chloride (Nacl 0.9% 1000 Ml) 1,000 mls @ 42 mls/hr IV DIRECT [facility] Last Admin: 08/15/20 00:00 Dose: 42 mls/hr Documented by: Ondansetron HCl (Zofran) 4 mg IV Q8H PRN PRN Reason: Nausea And Vomiting Potassium Chloride (K-Dur) 20 meq PO BID [facility] Last Admin: 08/14/20 22:00 Dose: 20 meq Documented by: Propranolol HCl (Inderal) 30 mg PO DAILY [facility] Sodium Chloride (Sodium Chloride Flush Syringe 10 Ml) 10 ml IV BID [facility] Last Admin: 08/14/20 22:01 Dose: 10 ml Documented by: Sodium Chloride (Sodium Chloride Flush Syringe 10 Ml) 10 ml IV PRN PRN PRN Reason: LINE FLUSH Stop: 08/24/20 15:09 Exam - Vital Signs Vital signs: Vital Signs Temp Pulse Resp BP Pulse Ox 98.1 F 87 18 98/66 100 10/28/20 10:07 08/14/20 10:07 08/14/20 10:07 08/14/20 10:07 08/14/20 10:07 Results - Lab Results 08/14/20 11:53 08/15/20 15:30 Most recent lab results Calcium 9.1 mg/dL (8.4-10.2) 08/14/20 11:53 Phosphorus 2.50 mg/dL (2.5-4.5) 08/14/20 11:53 Magnesium 1.90 mg/dL (1.7-2.3) 08/14/20 11:53 Urine Creatinine 25.8 mg/dL (0.1-20.0) H 08/14/20 12:44 Urine Sodium 14 mmol/L 08/14/20 Unknown
[2020-08-15] MEDS ORDERED: PROPRANOLOL 10 MG TAB PO SCH (10:00)
[2020-08-15] MEDS: POTASSIUM CHLORIDE ER 20 MEQ TAB PO SCH (10:09)
[2020-08-15 16:05] LABS: Blood Urea Nitrogen 3 mg/dL (7-17); Calcium 8.9 mg/dL (8.4-10.2); Hemolysis Index 3
[2020-08-15 16:07] LABS: BUN/Creatinine Ratio 5
[2020-08-15] MEDS ORDERED: POTASSIUM CHLORIDE ER 20 MEQ TAB PO ONE (16:25)
--- NOTE | 2020-08-15 16:49 | Discharge Summary ---
Providers - Providers Date of Admission: 08/14/20 15:10 Attending physician: PHIL SANDOVAL MD 08/14/20 15:05 Consult to Physician [CONS] Urgent Comment: Consulting Provider: DALILA HARRIS Physician Instructions: Reason For Exam: hypokalemia Primary care physician: OSTEOPATHY DOCTOR Hospitalization Reason for admission: Paresthesias Condition: Stable Hospital course: 69 YO Female with HTN, Chronic Hypokalemia, HLD presents to ED for evaluation. Patient states that she has experienced numbness and "cold feeling" to her fingertips as well as her feet over the past 10 days with persistent symptoms over the same timeframe. Patient denies the use of laxatives and/or diuretic therapy. Patient transported to [facility] via private vehicle for further care and evaluation of the aforementioned symptoms. Patient seen and evaluated in the emergency department. All lab and imaging studies reviewed. Patient was found to have hypokalemia, metabolic alkalosis, as well as bilateral upper and lower extremity paresthesias. Patient placed in observation status and admitted to medical floor. Nephrology team consulted in ED. Patient denies fever, chills, chest pain, palpitations, productive cough, skin rash, recent ill contacts, or known exposure to COVID-19. No prior admission for review. All medication listed at time of admission has been reconciled. Advanced care planning conducted in the emergency department. Patient had potassium corrected and alkalosis resolved. We did discuss triamterene and hydrochlorothiazide which the patient takes and will be stopped. For tolerated blood pressure medication at this time. After discussion with the patient and advised in the work-up that is needed by nephrology she mentioned that she left her dog at home alone and would like to be discharged to follow-up with them outpatient I did inform her that I would also like her to see a neurologist she would rather do this outpatient. Advised about fall risk due to proprioception issues. She verbalized understanding. I will be discharging her with 2 days of potassium and will also give her magnesium replacement in house. Disposition: TO HOME OR SELFCARE Time spent for discharge: 35-minute Core Measure Documentation - Palliative Care Palliative Care/ Comfort Measures: Not Applicable - Core Measures Any of the following diagnoses?: none Exam - Physical Exam Narrative exam: VITAL SIGNS: Reviewed. GENERAL: The patient appears normally developed, Vital signs as documented. HEAD: No signs of head trauma. EYES: Pupils are equal. Extraocular motions intact. EARS: Hearing grossly intact. MOUTH: Oropharynx is normal. NECK: No adenopathy, no JVD. CHEST: Chest with clear breath sounds bilaterally. No wheezes, rales, or rhonchi. CARDIAC: Regular rate and rhythm. S1 and S2, without murmurs, gallops, or rubs. VASCULAR: No Edema. Peripheral pulses normal and equal in all extremities. ABDOMEN: Soft, non tender and non distended. No rebound or guarding, and no masses palpated. Bowel Sounds normal. MUSCULOSKELETAL: Good range of motion of all major joints. Extremities without clubbing, cyanosis or edema. NEUROLOGIC EXAM: Alert and oriented x 3 No focal sensory or strength deficits. Speech normal. Follows commands. PSYCHIATRIC: Mood normal. SKIN: detail exam as documented in skin assessment - Constitutional Vitals: Temp Pulse Resp BP Pulse Ox 97.7 F 94 H 17 111/75 98 08/15/20 11:42 08/15/20 15:38 08/15/20 11:42 08/15/20 15:38 08/15/20 11:42 Plan Activity: advance as tolerated, fall precautions Diet: low fat Special Instructions: record daily weights, record daily BP diary Follow up with: PRIMARY MD TERESA [Primary Care Provider] - 3-5 Days DALILA HARRIS MD [Staff Physician] - 7 Days DAVONTE LARA MD [Referring] - 7 Days
[2020-08-15] MEDS ORDERED: MAGNESIUM OXIDE 400 MG TAB PO SCH (17:00)
[2020-08-15] MEDS ORDERED: SODIUM CHLORIDE 0.9% 500 ML 500 ML IV ONE (17:56)
[2020-08-15 18:09] VITALS: BP 98/59
== END 2020-08-15 19:15 | disposition home or self-care (01) ==
LOC: ED 09:46 → 3A 15:10
PROVIDERS: ADMIT Internal Medicine; ATTEND Internal Medicine
DX: E87.3 Alkalosis (principal); E87.6 Hypokalemia; R20.2 Paresthesia of skin; I10 Essential (primary) hypertension; E78.5 Hyperlipidemia, unspecified; E78.00 Pure hypercholesterolemia, unspecified; Z68.22 Body mass index [BMI] 22.0-22.9, adult
CPT/HCPCS: 36415; 80048; 81001; 82040; 82088; 82570; 83735; 84100; 84133; 84300; 84439; 84443; 85025; 96360; 96361; 99284; G0378; J7030; J7040

== ENCOUNTER 2020-09-03 15:22 | Emergency (ER) | payer MEDICARE ==
[2020-09-03 15:39] VITALS: BP 113/76
--- NOTE | 2020-09-03 15:40 | Event Note ---
ED Screening Note Date of service: 09/03/20 Time: 15:38 ED Screening Note: Pt complains of N/V/D x 5 days denies any abdominal pain, cough, chest pain, or SOB +tachycardia This initial assessment/diagnostic orders/clinical plan/treatment(s) is/are subject to change based on patients health status, clinical progression and re- assessment by fellow clinical providers in the ED. Further treatment and workup at subsequent clinical providers discretion. Patient/guardian urged not to elope from the ED as their condition may be serious if not clinically assessed and managed. Initial orders include: labs
[2020-09-03 16:47] LABS: Basophils % (Auto) 0.4 % (0.0-1.8); Eosinophils % (Auto) 0.2 % (0.0-4.3); Hematocrit 24.4 % (30.3-42.9); Hemoglobin 8.3 gm/dl (10.1-14.3); Lymphocytes # (Auto) 0.6 K/mm3 (1.2-5.4); Mean Corpuscular HGB Conc 34 % (30-34); Mean Corpuscular Volume 118 fl (79-97); Monocytes # (Auto) 0.4 K/mm3 (0.0-0.8); Monocytes % (Auto) 12.8 % (0.0-7.3); Platelet Count 119 K/mm3 (140-440); Red Blood Count 2.07 M/mm3 (3.65-5.03); Red Cell Distribution Width 14.9 % (13.2-15.2)
[2020-09-03 17:00] LABS: Alanine Aminotransferase 50 units/L (7-56); Albumin 3.9 g/dL (3.9-5); Blood Urea Nitrogen 6 mg/dL (7-17); Calcium 9.2 mg/dL (8.4-10.2); Hemolysis Index 3
[2020-09-03 17:01] LABS: BUN/Creatinine Ratio 10
[2020-09-03] MEDS ORDERED: ONDANSETRON 4 MG/2 ML INJ IV ONE (20:50)
[2020-09-03] MEDS ORDERED: SODIUM CHLORIDE 0.9% 1000 ML 1,000 ML IV ONE (20:50)
--- NOTE | 2020-09-03 21:02 | Emergency Department Report ---
ED N/V/D HPI - General Chief complaint: Nausea/Vomiting/Diarrhea Stated complaint: NAUSEA/DIARREAH/NUMB FLACO HAND Time Seen by Provider: 09/03/20 15:37 Source: patient Mode of arrival: Ambulatory Limitations: No Limitations - History of Present Illness Initial comments: Patient is a 69-year-old -[place] female with history of hypokalemia , sinus tachycardia symptoms are treated with propranolol , nausea vomiting and diarrhea for the past 5 days. Patient denies fevers or chills. States some abdominal cramping /. States unable to tolerate p.o. for the last 5 consecutive days. Patient states secondary concern for unable to tolerate propr anolol and does not want to get tachycardia. Patient is followed by Dr. Cade. Patient denies chest pain, dizziness, or lightheadedness at this time. There are no relieving factors, symptoms are exacerbated by p.o. intake. MD complaint: nausea, vomiting, diarrhea, abdominal pain Onset/Timin -: days(s) Description of Vomiting: food contents Severity: moderate Pain Scale: 3 Quality: cramping, aching Consistency: constant Improves with: none Worsens with: eating Associated Symptoms: malaise, nausea/vomiting. denies: chest pain, cough, fever/chills, dysuria, shortness of breath, syncope - Related Data Home Medications Medication Instructions Recorded Confirmed Last Taken propranoloL [Inderal] 30 mg PO DAILY 07/12/18 07/12/18 Unknown Previous Rx's Medication Instructions Recorded Last Taken Type Potassium Chloride [K-Dur] 20 meq PO BID #30 08/15/20 Unknown Rx Ciprofloxacin HCl [Ciprofloxacin 500 mg PO Q12HR 7 Days #14 tab 09/04/20 Unknown Rx TAB] metroNIDAZOLE [Flagyl] 500 mg PO Q12HR 7 Days #14 tab 09/04/20 Unknown Rx traMADoL [Ultram] 50 mg PO Q6HR PRN #12 tablet 09/04/20 Unknown Rx Allergies Allergy/AdvReac Type Severity Reaction Status Date / Time aspirin AdvReac Unknown Verified 08/14/20 10:03 ED Review of Systems ROS: Stated complaint: NAUSEA/DIARREAH/NUMB FLACO HAND Other details as noted in HPI Constitutional: malaise. denies: chills, fever Eyes: as per HPI ENT: denies: ear pain, throat pain Respiratory: no symptoms reported. denies: shortness of breath, wheezing Cardiovascular: denies: chest pain, palpitations Endocrine: no symptoms reported Gastrointestinal: abdominal pain, nausea, vomiting, diarrhea Genitourinary: denies: urgency, dysuria, frequency, hematuria, discharge Musculoskeletal: denies: back pain, joint swelling, arthralgia Skin: denies: rash, lesions Neurological: denies: headache, weakness, paresthesias Psychiatric: denies: anxiety, depression Hematological/Lymphatic: denies: easy bleeding, easy bruising ED Past Medical Hx - Past Medical History Previous Medical History?: Yes Hx Hypertension: Yes Hx Heart Attack/AMI: No Hx Congestive Heart Failure: No Hx Diabetes: No Hx Deep Vein Thrombosis: Yes Hx Pulmonary Embolism: No Hx Liver Disease: No Hx Renal Disease: No Hx Sickle Cell Disease: No Hx Arthritis: No Hx Kidney Stones: No Hx Asthma: No Hx COPD: No Hx Tuberculosis: No Hx HIV: No Additional medical history: Chronic hypokalemia, elevated cholesterol - Surgical History Past Surgical History?: No Hx Coronary Stent: No Hx Pacemaker: No Hx Internal Defibrillator: No - Social History Smoking Status: Unknown if ever smoked Substance Use Type: None - Medications Home Medications: Home Medications Medication Instructions Recorded Confirmed Last Taken Type propranoloL [Inderal] 30 mg PO DAILY 07/12/18 07/12/18 Unknown History Potassium Chloride [K-Dur] 20 meq PO BID #30 08/15/20 Unknown Rx Ciprofloxacin HCl [Ciprofloxacin 500 mg PO Q12HR 7 Days #14 tab 09/04/20 Unknown Rx TAB] metroNIDAZOLE [Flagyl] 500 mg PO Q12HR 7 Days #14 tab 09/04/20 Unknown Rx traMADoL [Ultram] 50 mg PO Q6HR PRN #12 tablet 09/04/20 Unknown Rx ED Physical Exam - General Limitations: No Limitations General appearance: alert, in no apparent distress - Head Head exam: Present: atraumatic, normocephalic - Eye Eye exam: Present: normal appearance, EOMI Pupils: Present: normal accommodation - ENT ENT exam: Present: mucous membranes moist - Neck Neck exam: Present: normal inspection, full ROM. Absent: tenderness - Respiratory Respiratory exam: Present: normal lung sounds bilaterally. Absent: respiratory distress, wheezes, stridor, chest wall tenderness - Cardiovascular Cardiovascular Exam: Present: regular rate, tachycardia, normal heart sounds. Absent: systolic murmur, diastolic murmur, rubs, gallop, clicks, JVD - GI/Abdominal GI/Abdominal exam: Present: soft, normal bowel sounds. Absent: distended, tenderness, guarding, rebound, rigid, bruit, hernia - Expanded GI/Abdominal Exam Expanded GI/Abdominal exam: Absent: psoas sign, obturator sign, heel tap sign, Dotson's sign, Rovsing's sign, tenderness at Mcburney's Point, ascites - Rectal Rectal exam: Present: deferred - Extremities Exam Extremities exam: Present: normal inspection, full ROM, normal capillary refill. Absent: tenderness, pedal edema - Back Exam Back exam: Present: normal inspection, full ROM. Absent: tenderness, CVA tenderness (R), CVA tenderness (L), vertebral tenderness - Neurological Exam Neurological exam: Present: alert, oriented X3, CN II-XII intact, normal gait - Psychiatric Psychiatric exam: Present: normal affect, normal mood - Skin Skin exam: Present: warm, dry, intact, normal color. Absent: rash ED Course Vital Signs 09/03/20 15:38 Temperature 98.5 F Pulse Rate 117 H Respiratory 16 Rate Blood Pressure 113/76 [Right] O2 Sat by Pulse 98 Oximetry ED Medical Decision Making - Lab Data Result diagrams: 09/03/20 16:19 09/03/20 16:19 Labs 09/03/20 09/03/20 09/03/20 16:19 16:19 20:50 WBC 3.1 L RBC 2.07 L Hgb 8.3 L Hct 24.4 L MCV 118 H MCH 40 H MCHC 34 RDW 14.9 Plt Count 119 L Lymph % (Auto) 19.0 Bay % (Auto) 12.8 H Eos % (Auto) 0.2 Baso % (Auto) 0.4 Lymph # (Auto) 0.6 L Bay # (Auto) 0.4 Eos # (Auto) 0.0 Baso # (Auto) 0.0 Seg Neutrophils % 67.6 Seg Neutrophils # 2.1 Sodium 136 L Potassium 3.2 L Chloride 86.7 L Carbon Dioxide 28 Anion Gap 25 BUN 6 L Creatinine 0.6 Estimated GFR > 60 BUN/Creatinine Ratio 10 Glucose 129 H Calcium 9.2 Total Bilirubin 2.00 H AST 117 H ALT 50 Alkaline Phosphatase 77 Troponin T < 0.010 Total Protein 7.6 Albumin 3.9 Albumin/Globulin Ratio 1.1 Lipase 100 H - EKG Data EKG shows normal: sinus rhythm Rate: tachycardia - EKG Data When compared to previous EKG there are: no significant change Interpretation: normal EKG - Radiology Data Radiology results: report reviewed, image reviewed xray normal no infiltrates , CT Abd Plevis: mild doudenitis, mild bladder wall thicknening. - Medical Decision Making Pain is relieved to 0 10 after antibiotics given in ED plan DC to home with prescription for Cipro and Flagyl. Patient will follow-up with primary care doctor in 2 to 3 days. Patient will return to ED if unable to tolerate p.o. Patient appears well well-hydrated well-nourished with no acute distress at this time she is alert oriented and ambulatory with steady gait. Critical care attestation.: If time is entered above; I have spent that time in minutes in the direct care of this critically ill patient, excluding procedure time. ED Disposition Clinical Impression: Hypokalemia Nausea and vomiting Qualifiers: Vomiting type: unspecified Vomiting Intractability: non-intractable Qualified Code(s): R11.2 - Nausea with vomiting, unspecified Abdominal pain Qualifiers: Abdominal location: generalized Qualified Code(s): R10.84 - Generalized abdominal pain Disposition: DC-01 TO HOME OR SELFCARE Is pt being admited?: No Does the pt Need Aspirin: No Condition: Stable Instructions: Nausea and Vomiting, Adult Prescriptions: Ciprofloxacin HCl [Ciprofloxacin TAB] 500 mg PO Q12HR 7 Days #14 tab metroNIDAZOLE [Flagyl] 500 mg PO Q12HR 7 Days #14 tab traMADoL [Ultram] 50 mg PO Q6HR PRN #12 tablet PRN Reason: Pain Referrals: FARRUKH RIVERA MD [Primary Care Provider] - 3-5 Days Forms: Work/School Release Form(ED) Time of Disposition: 03:15
--- NOTE | 2020-09-03 21:59 | Cat Scan Report ---
CT ABDOMEN AND PELVIS WITH CONTRAST INDICATION / CLINICAL INFORMATION: Pt complains of abdominal pain with N/V x 5 days. TECHNIQUE: Axial CT images were obtained through the abdomen and pelvis following the administration of intraven ous contrast. All CT scans at this location are performed using CT dose reduction for ALARA by means of automated exposure control. COMPARISON: None available. FINDINGS: LOWER CHEST: No significant abnormality. LIVER: Diffusely hypoattenuating compatible with steatosis. GALLBLADDER: No significant abnormality. PANCREAS: No significant abnormality. SPLEEN: No significant abnormality. ADRENALS: No significant abnormality. KIDNEYS / URETERS: No significant abnormality. URINARY BLADDER: Mild urinary bladder wall thickening. REPRODUCTIVE ORGANS: Hysterectomy changes. No significant abnormality. STOMACH / SMALL BOWEL: There is mild inflammatory fat stranding adjacent to the proximal duodenum. No perforation or obstruction. COLON: No significant abnormality. APPENDIX: No significant abnormality. PERITONEUM: No free fluid. No free air. No fluid collection. LYMPH NODES: No significant adenopathy. AORTA / ARTERIES: Mild atherosclerotic calcification without acute abnormality. IVC / VEINS: No significant abnormality. 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 ADDITIONAL FINDINGS: None. IMPRESSION: 1. Mild duodenitis without perforation or obstruction. 2. Mild urinary bladder wall thickening could represent a cystitis in the right clinical setting. Cor relation with urinalysis is recommended. 3. Hepatic steatosis. Signer Name: Sulaiman Ramirez MD Signed: 09/03/2020 9:59 PM Workstation Name: [id number]
--- NOTE | 2020-09-03 22:34 | XRay Report ---
CHEST 1 VIEW 09/03/2020 9:33 PM INDICATION / CLINICAL INFORMATION: epigastric pain. COMPARISON: 10/24/2017 FINDINGS: SUPPORT DEVICES: None. HEART / MEDIASTINUM: No significant abnormality. LUNGS / PLEURA: No significant pulmonary or pleural abnormality. No pneumothorax. ADDITIONAL FINDINGS: No significant additional findings. IMPRESSION: 1. No acute findings. Signer Name: Vishnu Strauss MD Signed: 09/03/2020 10:33 PM Workstation Name: [id number]
[2020-09-03] MEDS ORDERED: PIPERACIL/TAZOBACTA 4.5/NS 100 4.5 GM/100 ML VIAL IV ONE (23:19)
[2020-09-03] MEDS ORDERED: POTASSIUM CHLORIDE ER 20 MEQ TAB PO ONE (23:20)
[2020-09-04] MEDS ORDERED: POTASSIUM CHLORIDE ER 20 MEQ TAB PO ONE (04:05)
[2020-09-04] MEDS ORDERED: PIPERACIL/TAZOBACTA 4.5/NS 100 4.5 GM/100 ML VIAL IV ONE (04:05)
== END 2020-09-04 04:50 | disposition home or self-care (01) ==
LOC: ED 15:22
DX: E87.6 Hypokalemia (principal); I10 Essential (primary) hypertension; E78.00 Pure hypercholesterolemia, unspecified; Z79.899 Other long term (current) drug therapy; Z88.6 Allergy status to analgesic agent
CPT/HCPCS: 36415; 71045; 74177; 80053; 83690; 84484; 85025; 96361; 96365; 96375; 99284; J2405; J2543; J7030; Q9967

== ENCOUNTER 2021-04-04 08:13 | Day surgery (SDC) | payer MEDICARE ==
[2021-04-04 10:41] LABS: Hematocrit 35.9 % (30.3-42.9); Hemoglobin 12.1 gm/dl (10.1-14.3); Mean Corpuscular HGB Conc 34 % (30-34); Mean Corpuscular Volume 94 fl (79-97); Platelet Count 138 K/mm3 (140-440); Red Blood Count 3.84 M/mm3 (3.65-5.03); Red Cell Distribution Width 15.4 % (13.2-15.2)
--- NOTE | 2021-04-04 10:48 | XRay Report ---
BONE SURVEY METASTATIC HISTORY: Monoclonal gammopathy. COMPARISON: CT abdomen and pelvis dated 09/03/2020 IMPRESSION: The calvarium has a slightly mottled appearance which may represent scattered small lucen t lesions. There are also subtle subcentimeter lucent lesions in both proximal femurs. No additional bony lesions are identified in the spine, rib cage, pelvis or proximal humeri. Mild degenerative zambrano ges are noted in the lower lumbar spine. No acute osseous injury. Signer Name: Bassam Shukla Jr, MD Signed: 04/04/2021 10:44 AM Workstation Name: [id number]
[2021-04-04 10:52] LABS: INR 0.96 (0.87-1.13)
[2021-04-04 10:53] LABS: Partial Thromboplastin Time 30.8 Sec. (24.2-36.6)
[2021-04-04 10:58] LABS: BUN/Creatinine Ratio 22; Blood Urea Nitrogen 13 mg/dL (7-17); Calcium 9.6 mg/dL (8.4-10.2); Hemolysis Index 96
[2021-04-04] MEDS ORDERED: HYDROmorphone 1 MG/1 ML INJ IV ONE (11:43)
[2021-04-04] MEDS ORDERED: ONDANSETRON 4 MG/2 ML INJ IV ONE (11:43)
[2021-04-04] MEDS ORDERED: SODIUM CHLORIDE 0.9% 500 ML 500 ML IV SCH (12:00)
[2021-04-04 15:12] VITALS: BP 120/60
[2021-04-04 17:08] LABS: RBC Morphology Normal; Total Cells Counted 100
[2021-04-04 17:09] LABS: Platelet Estimate Cons
--- NOTE | 2021-04-17 12:07 | Cat Scan Report ---
CT-GUIDED BONE MARROW ASPIRATION AND BIOPSY INDICATION : Monoclonal gammopathy PROCEDURE: The risks (including but not limited to bleeding and infection) and benefits were explain ed to the patient and informed consent was obtained. All CT examinations performed at this facility utilize dose modulation, iterative reconstruction or weight-based dosing, when appropriate, to reduce radiation dose to as low as reasonably achievable. A time out procedure was performed. The procedu re site was prepped and draped in the usual sterile fashion and lidocaine was used for local anesthes ia. Under CT guidance, the left posterior iliac wing was selected for biopsy. An 11 gauge needle was adv anced to the posterior margin of the iliac wing, cortex breached, and 4.5 mL bone marrow aspirate obt ained. The needle was then advanced and a bone marrow biopsy was obtained measuring approximately 2 cm. Samples were given directly to the traffic control technician who was present during the exam. The patient tolerated the procedure well with no complications. IMPRESSION: Technically successful bone marrow aspirate and biopsy. Signer Name: Bassam Shukla Jr, MD Signed: 04/17/2021 12:03 PM Workstation Name: [id number]
== END 2021-04-04 16:02 | disposition home or self-care (01) ==
LOC: CATHLABREC 08:13 → CT 08:13 → CATHLABREC 16:02
PROVIDERS: ATTEND Internal Medicine Hematology
DX: D47.2 Monoclonal gammopathy (principal); D61.811 Other drug-induced pancytopenia; E78.00 Pure hypercholesterolemia, unspecified; I10 Essential (primary) hypertension; D64.9 Anemia, unspecified; Z88.6 Allergy status to analgesic agent; Z79.899 Other long term (current) drug therapy; Z87.891 Personal history of nicotine dependence; Z86.718 Personal history of other venous thrombosis and embolism; Z90.710 Acquired absence of both cervix and uterus; Z98.890 Other specified postprocedural states; Z83.3 Family history of diabetes mellitus; Z80.8 Family history of malignant neoplasm of other organs or systems; Z82.49 Family history of ischemic heart disease and other diseases of the circulatory system
CPT/HCPCS: 36415; 38222; 77074; 80048; 85007; 85027; 85610; 85730; 88184; 88185; 88230; 88291; 88305; J1170; J2405; J7040; 85097; 88161; 88311; 88313